=== PATIENT | male | born 2000 | race Caucasian/White ===

== ENCOUNTER 2023-02-19 22:51 | Emergency (ER) | payer OTHER ==
[~2023-02-19] VITALS: Ht 180.3 cm; Wt 65.9 kg
[2023-02-20 00:24] VITALS: BP 124/74; TEMP 98.1; O2SAT 99
== END 2023-02-20 00:26 | disposition home or self-care (01) ==
LOC: M ED 22:51
DX: Z04.1 Encounter for examination and observation following transport accident (principal); F10.10 Alcohol abuse, uncomplicated